=== PATIENT | male | born 1970 | race Caucasian/White ===

== ENCOUNTER 2016-10-11 14:35 | Emergency (ER) | payer OTHER, BC ==
[2016-10-11 14:48] VITALS: BP 159/101
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
[2016-10-11] MEDS ORDERED: Diphtheria,Pertussis(Acell),Tetanus Vaccine 0.5 ML Syringe IM ONE ×2 (15:00→15:02)
[2016-10-11] MEDS ORDERED: Sodium Chloride 0.9% 1,000 ML IV ONE (15:35)
[2016-10-11] MEDS ORDERED: ceFAZolin 1 GM Vial IM ONE (15:54)
[2016-10-11] MEDS ORDERED: Lidocaine 1% 20 ML MDV INJECT ONE (15:56)
[2016-10-11] MEDS ORDERED: Bupivacaine 0.5% 10 ML SDV INJECT ONE (15:56)
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
[2016-10-11] MEDS ORDERED: Bacitracin Oint 28.35 GM Tube TOP ONE (16:40)
[2016-10-11] MEDS ORDERED: Water For Injection, Sterile 20 ML SDV INJECT STA (16:41)
[2016-10-11] MEDS ORDERED: Bacitracin Oint 1 GM U/D Packet TOP ONE (16:42)
== END 2016-10-11 17:10 | disposition home or self-care (01) ==
LOC: MW.ED 14:35
DX: S62.661B Nondisplaced fracture of distal phalanx of left index finger, initial encounter for open fracture (principal); F17.200 Nicotine dependence, unspecified, uncomplicated; Z79.899 Other long term (current) drug therapy; W27.8XXA Contact with other nonpowered hand tool, initial encounter; Y92.69 Other specified industrial and construction area as the place of occurrence of the external cause; Y99.0 Civilian activity done for income or pay; Z23 Encounter for immunization
CPT/HCPCS: 12001; 73140; 90471; 96372; 99283; J0690; 90715

== ENCOUNTER 2016-12-20 05:55 | Observation (INO) | payer BC, OTHER ==
[2016-12-20] MEDS ORDERED: Sodium Chloride 0.9% 10 ML Syringe FLUSH PRN (06:08)
[2016-12-20] MEDS ORDERED: Sodium Chloride 0.9% 2.5 ML Syringe FLUSH PRN (06:08)
[2016-12-20] MEDS ORDERED: Aspirin 81 MG Tab.Chew PO ONE (06:08)
[2016-12-20] MEDS ORDERED: Sodium Chloride 0.9% 1,000 ML IV ONE (06:08)
--- NOTE | 2016-12-20 06:13 | EDM.PDOC ---
ED HPI GENERAL MEDICAL PROBLEM - General Chief Complaint: Chest Pain Stated Complaint: CHEST PAIN Time Seen by Provider: 12/20/16 06:01 - History of Present Illness INITIAL COMMENTS - FREE TEXT/NARRATIVE: HISTORY AND PHYSICAL: History of present illness: The patient is a 46-year-old male with no stated medical problems who presents with complaints of pain to the left side of his chest describes a sharp and intermittent in intensity but constant since it started at 11:00 last evening. Patient states he has had similar episodes of this pain in the past at least several times over last 1 year but has not sought any medical care. The patient denied any shortness of breath throughout the night but feels somewhat short of breath now and no nausea abdominal pain vomiting or diarrhea. 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 He has no leg pain or swelling and no cardiac or pulmonary history. He has a history of tobacco use but denies drug use and does have a father who has had heart problems and heart attacks with his first problem in his 40s. Patient does not know his cholesterol lipid panel is never demonstrated test. Patient states when he had these episodes in the past he has been "stubborn" and has not seen a doctor for them. Patient denies any taking medication for this discomfort persisted and currently in the ED he rates his pain as a 5/10. He drinks socially and did have beer last evening approximately 6 beers. Patient states he tries to eat healthy and when he is on the oil doing strenuous activity recently he did not have any chest pain with it. Patient says he was asleep and woke up when the discomfort started. The patient indicates just left of the sternum mid chest anteriorly as the site of the discomfort Review of systems: As per history of present illness and below otherwise all systems reviewed and negative. Past medical history: As per history of present illness and as reviewed below otherwise noncontributory. Surgical history: As per history of present illness and as reviewed below otherwise noncontributory. Social history: No reported history of drug or alcohol abuse. Family history: As per history of present illness and as reviewed below otherwise noncontributory. Physical exam: Gen.: Well-developed well-nourished male who is mildly overweight and speaks slowly and easily in the ED without any distress. Vital signs been noted by me. The patient is a very strong smell of mouthwash as chewing, my evaluation HEENT: Atraumatic, normocephalic, negative for conjunctival pallor or scleral icterus, mucous membranes moist, throat clear, neck supple, nontender, trachea midline. No cervical adenopathy Lungs: Clear to auscultation, breath sounds equal bilaterally, chest nontender. Heart: S1S2, regular, negative for clicks, rubs, or JVD. Abdomen: Soft, nondistended, nontender. Negative for masses or hepatosplenomegaly. Negative for costovertebral tenderness. Pelvis: Stable nontender. Genitourinary: Deferred. Rectal: Deferred. Extremities: Atraumatic, negative for cords or calf pain. Neurovascular unremarkable. No pedal edema or leg asymmetry Neuro: Awake, alert, oriented. Cranial nerves II through XII unremarkable. Cerebellum unremarkable. Motor and sensory unremarkable throughout. Exam nonfocal. Diagnostics: EKG CBC CMP lipase INR troponin and chest x-ray alcohol level Therapeutics: IV O2 monitor aspirin sublingual nitroglycerin With the first 2 nitroglycerin the patient states the pain went from being sharp or pressure-like but still was a 5/10 and after the third nitroglycerin his chest pain is a 3/10. We will proceed to give some morphine as well as Nitropaste and reevaluate Personal evaluation the patient states the pain is almost gone is very dull in nature and very much improved from when he came in. I discussed all testing results with him and his and advised observation admission and he is agreeable to do so. At 13 and discussed the case with Dr. Huddleston who also except the patient for observation admission Impression: Chest pain rule out ACS Definitive disposition and diagnosis as appropriate pending reevaluation and review of above. chest Pain Score (Numeric/FACES): 5 - Related Data Allergies Allergy/AdvReac Type Severity Reaction Status Date / Time No Known Allergies Allergy Verified 12/20/16 06:05 Home Meds: Home Meds Omeprazole Magnesium [Prilosec Otc] 20 mg PO DAILY 11/20/14 [History] Past Medical History - Past Health History Medical/Surgical History: Denies Medical/Surgical History Gastrointestinal History: Reports: GERD - Infectious Disease History Infectious Disease History: Reports: Chicken Pox - Past Surgical History Other Musculoskeletal Surgeries/Procedures:: left leg Social & Family History - Family History Family Medical History: Noncontributory - Tobacco Use Smoking Status *Q: Current Every Day Smoker Years of Tobacco use: 20 Packs/Tins Daily: 1 - Alcohol Use Days Per Week of Alcohol Use: 0 Number of Drinks Per Day: 6 Total Drinks Per Week: 0 - Recreational Drug Use Recreational Drug Use: No ED ROS GENERAL - Review of Systems Review Of Systems: ROS reveals no pertinent complaints other than HPI. ED EXAM, GENERAL - Physical Exam Exam: See Below (See dictation) Course - Vital Signs Last Recorded V/S: Last Vital Signs Temp 36.6 C 12/20/16 06:09 Pulse 69 12/20/16 06:09 Resp 18 12/20/16 06:09 BP 128/78 12/20/16 06:29 Pulse Ox 94 L 12/20/16 06:09 - Orders/Labs/Meds Orders: Active Orders 24 hr Category Date Time Status Patient Status [ADT] Stat ADT 12/20/16 07:10 Ordered Cardiac Monitoring [RC] . DIRECTED Care 12/20/16 06:07 Active EKG Documentation Completion [RC] STAT Care 12/20/16 06:07 Active Oxygen Therapy, ED [RC] ASDIRECTED Care 12/20/16 06:07 Active Pulse Oximetry [RC] ASDIRECTED Care 12/20/16 06:07 Active Chest 1V Frontal [CR] Stat Exams 12/20/16 06:07 Taken Sodium Chloride 0.9% [Saline Flush] Med 12/20/16 06:08 Active 10 ml FLUSH ASDIRECTED PRN Sodium Chloride 0.9% [Saline Flush] Med 12/20/16 06:08 Active 2.5 ml FLUSH ASDIRECTED PRN Saline Lock Insert [OM.PC] Stat Oth 12/20/16 06:07 Ordered Medication Orders Sodium Chloride (Saline Flush) 10 ml FLUSH ASDIRECTED PRN PRN Reason: Keep Vein Open Last Admin: 12/20/16 06:25 Dose: 10 ml Sodium Chloride (Saline Flush) 2.5 ml FLUSH ASDIRECTED PRN PRN Reason: Keep Vein Open Last Admin: 12/20/16 06:24 Dose: 2.5 ml Labs: Laboratory Tests 12/20/16 12/20/16 12/20/16 Range/Units 06:06 06:06 06:06 WBC 5.65 (4.0-11.0) K/uL RBC 4.84 (4.50-5.90) M/uL Hgb 15.1 (13.0-17.0) g/dL Hct 45.4 (38.0-50.0) % MCV 93.8 (80.0-98.0) fL MCH 31.2 (27.0-32.0) pg MCHC 33.3 (31.0-37.0) g/dL RDW Std Deviation 47.9 (28.0-62.0) fl RDW Coeff of Kayla 14 (11.0-15.0) % Plt Count 193 (150-400) K/uL MPV 11.00 (7.40-12.00) fL Neut % (Auto) 50.6 (48.0-80.0) % Lymph % (Auto) 25.8 (16.0-40.0) % [place] % (Auto) 8.5 (0.0-15.0) % Eos % (Auto) 14.7 H (0.0-7.0) % Baso % (Auto) 0.4 (0.0-1.5) % Neut # (Auto) 2.9 (1.4-5.7) K/uL Lymph # (Auto) 1.5 (0.6-2.4) K/uL [place] # (Auto) 0.5 (0.0-0.8) K/uL Eos # (Auto) 0.8 H (0.0-0.7) K/uL Baso # (Auto) 0.0 (0.0-0.1) K/uL Nucleated RBC % 0.0 /100WBC Nucleated RBCs # 0 K/uL INR 0.92 (0.86-1.11) Sodium 141 (136-146) mmol/L Potassium 3.8 (3.5-5.1) mmol/L Chloride 111 H (98-110) mmol/L Carbon Dioxide 19 L (21-31) mmol/L BUN 12 (6.0-23.0) mg/dL Creatinine 0.9 (0.6-1.5) mg/dL Est Cr Clr Drug Dosing 130.63 mL/min Estimated GFR (MDRD) > 60.0 ml/min Glucose 96 (60-110) mg/dL Calcium 8.5 L (8.8-10.8) mg/dL Total Bilirubin 0.3 (0.1-1.5) mg/dL AST 23 (5-40) IU/L ALT 30 (8-54) IU/L Alkaline Phosphatase 79 (40-150) Troponin I (0.0-0.29) NG/ML Total Protein 7.5 (6.0-8.0) g/dL Albumin 4.4 (3.5-5.0) g/dL Globulin 3.1 (2.0-3.5) g/dL Albumin/Globulin Ratio 1.4 (1.3-2.8) Lipase 43 (7-80) U/L Ethyl Alcohol 43.5 mg/dL 12/20/16 Range/Units 06:06 WBC (4.0-11.0) K/uL RBC (4.50-5.90) M/uL Hgb (13.0-17.0) g/dL Hct (38.0-50.0) % MCV (80.0-98.0) fL MCH (27.0-32.0) pg MCHC (31.0-37.0) g/dL RDW Std Deviation (28.0-62.0) fl RDW Coeff of Kayla (11.0-15.0) % Plt Count (150-400) K/uL MPV (7.40-12.00) fL Neut % (Auto) (48.0-80.0) % Lymph % (Auto) (16.0-40.0) % [place] % (Auto) (0.0-15.0) % Eos % (Auto) (0.0-7.0) % Baso % (Auto) (0.0-1.5) % Neut # (Auto) (1.4-5.7) K/uL Lymph # (Auto) (0.6-2.4) K/uL [place] # (Auto) (0.0-0.8) K/uL Eos # (Auto) (0.0-0.7) K/uL Baso # (Auto) (0.0-0.1) K/uL Nucleated RBC % /100WBC Nucleated RBCs # K/uL INR (0.86-1.11) Sodium (136-146) mmol/L Potassium (3.5-5.1) mmol/L Chloride (98-110) mmol/L Carbon Dioxide (21-31) mmol/L BUN (6.0-23.0) mg/dL Creatinine (0.6-1.5) mg/dL Est Cr Clr Drug Dosing mL/min Estimated GFR (MDRD) ml/min Glucose (60-110) mg/dL Calcium (8.8-10.8) mg/dL Total Bilirubin (0.1-1.5) mg/dL AST (5-40) IU/L ALT (8-54) IU/L Alkaline Phosphatase (40-150) Troponin I < 0.10 (0.0-0.29) NG/ML Total Protein (6.0-8.0) g/dL Albumin (3.5-5.0) g/dL Globulin (2.0-3.5) g/dL Albumin/Globulin Ratio (1.3-2.8) Lipase (7-80) U/L Ethyl Alcohol mg/dL Meds: Medications Generic Name Dose Route Start Last Admin Trade Name Freq PRN Reason Stop Dose Admin Sodium Chloride 10 ml 12/20/16 06:08 12/20/16 06:25 Saline Flush FLUSH 10 ml ASDIRECTED PRN Administration Keep Vein Open Sodium Chloride 2.5 ml 12/20/16 06:08 12/20/16 06:24 Saline Flush FLUSH 2.5 ml ASDIRECTED PRN Administration Keep Vein Open Discontinued Medications Generic Name Dose Route Start Last Admin Trade Name Freq PRN Reason Stop Dose Admin Aspirin 324 mg 12/20/16 06:08 12/20/16 06:20 Aspirin PO 12/20/16 06:09 324 mg ONETIME ONE Administration Sodium Chloride 1,000 mls @ 999 mls/hr 12/20/16 06:08 12/20/16 06:12 Normal Saline IV 12/20/16 07:08 999 mls/hr STAT ONE Administration Ketorolac Tromethamine 30 mg 12/20/16 07:04 Toradol IVPUSH 12/20/16 07:05 ONETIME ONE Morphine Sulfate 2 mg 12/20/16 06:33 12/20/16 06:38 Morphine IVPUSH 12/20/16 06:34 2 mg ONETIME ONE Administration Nitroglycerin 0.4 mg 12/20/16 06:15 12/20/16 06:29 Nitrostat SL 12/20/16 06:26 0.4 mg Q5M BHARATHI Administration Nitroglycerin 0.5 gm 12/20/16 06:33 12/20/16 06:38 Nitro-Bid 2% TOP 12/20/16 06:34 0.5 gm ONETIME ONE Administration Pantoprazole Sodium 40 mg 12/20/16 07:04 Protonix Iv IVPUSH 12/20/16 07:05 .BOLUS ONE Departure - Departure Time of Disposition: 07:15 Disposition: Refer to Observation Condition: Good Clinical Impression: Chest pain Qualifiers: Chest pain type: unspecified Qualified Code(s): R07.9 - Chest pain, unspecified - Discharge Information Forms: ED Department Discharge - My Orders Last 24 Hours: My Active Orders 12/20/16 06:07 Cardiac Monitoring [RC] . DIRECTED EKG Documentation Completion [RC] STAT Oxygen Therapy, ED [RC] ASDIRECTED Pulse Oximetry [RC] ASDIRECTED Chest 1V Frontal [CR] Stat Saline Lock Insert [OM.PC] Stat 12/20/16 06:08 Sodium Chloride 0.9% [Saline Flush] 10 ml FLUSH ASDIRECTED PRN Sodium Chloride 0.9% [Saline Flush] 2.5 ml FLUSH ASDIRECTED PRN 12/20/16 07:10 Patient Status [ADT] Stat - Assessment/Plan Last 24 Hours: My Active Orders 12/20/16 06:07 Cardiac Monitoring [RC] . DIRECTED EKG Documentation Completion [RC] STAT Oxygen Therapy, ED [RC] ASDIRECTED Pulse Oximetry [RC] ASDIRECTED Chest 1V Frontal [CR] Stat Saline Lock Insert [OM.PC] Stat 12/20/16 06:08 Sodium Chloride 0.9% [Saline Flush] 10 ml FLUSH ASDIRECTED PRN Sodium Chloride 0.9% [Saline Flush] 2.5 ml FLUSH ASDIRECTED PRN 12/20/16 07:10 Patient Status [ADT] Stat
[2016-12-20] MEDS: Nitroglycerin 0.4 MG Tab.SL SL SCH ×3 (06:18→06:29)
[2016-12-20] MEDS ORDERED: Nitroglycerin 2% Oint 1 GM UD Packet TOP ONE (06:33)
[2016-12-20] MEDS ORDERED: Morphine 2 MG/ML Syringe IVPUSH ONE (06:33)
[2016-12-20 06:37] LABS: CHLORIDE,CL 111 mmol/L (98-110); SODIUM,NA 141 mmol/L (136-146)
[2016-12-20] MEDS ORDERED: Ketorolac 30 MG/ML SDV IVPUSH ONE (07:04)
[2016-12-20] MEDS ORDERED: Pantoprazole 40 MG Vial IVPUSH ONE (07:04)
[2016-12-20] MEDS ORDERED: Omeprazole 20 MG Cap.CR PO SCH (07:30)
[2016-12-20] MEDS ORDERED: Acetaminophen 325 MG Tab PO PRN (08:06)
[2016-12-20] MEDS ORDERED: Ondansetron 4 MG/2 ML SDV IVPUSH PRN (08:06)
--- NOTE | 2016-12-20 09:32 | PCM.HP ---
H&P History of Present Illness - General Date of Service: 12/20/16 Admit Problem/Dx: Admission Diagnosis/Problem Admission Diagnosis/Problem Chest pain Source of Information: Patient History Limitations: Reports: No Limitations - History of Present Illness Initial Comments - Free Text/Narative: This 46 year old male with pmh of GERD presented to the ED this morning with approximately 8 hours of chest pain. He reports this midsternal chest pain started last evening around 11:00pm. He describes it has a sharp stabbing sensation. He reported it wsa hard to take a deep breath and move his L arm. He denies it worsening with activity and does not recall anything making it better. He denied diaphoresis with pain, no SOB, palpitations or radiation of the pain. His reports noticing discoloration to his ears and nose, and that the pain was so intense he was tearing up. He tried sleeping through it but them woke up with the same pain and could not stand it any longer so he came to the ED for evaluation at the encouragement of his . He denies recent illness, no fevers, URI, cough or SOB. He did eat siracha potato salad last evening, which was spicy. He denies any trauma to his chest or body recently. 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 He reports he smokes about 1 ppd, social alochol use and no recreational drug use. He reports his father had several MIs with a CABG x 3 vessel, he was a heavy smoker and alcohol user. In the ED Labwork WNL. Troponin negative, EKG SR 60s, with no ST segment changes. CXR negative. He was given 2 SL nitros, with near resolution of chest pain, then give Morphine which completely took chest pain away. Nitro paste was placed. He will be admitted for observation, chest pain R/O ACS. chest Pain Score (Numeric/FACES): 5 - Related Data Allergies/Adverse Reactions: Allergies Allergy/AdvReac Type Severity Reaction Status Date / Time No Known Allergies Allergy Verified 12/20/16 06:05 Home Medications: Home Meds Omeprazole Magnesium [Prilosec Otc] 20 mg PO DAILY 11/20/14 [History] Past Medical History - Past Health History Medical/Surgical History: Denies Medical/Surgical History Cardiovascular History: Reports: Hypertension (not treated.). Denies: Afib, Blood Clots/VTE/DVT, Heart Failure, High Cholesterol Respiratory History: Reports: None, Asthma. Denies: COPD, PE Gastrointestinal History: Reports: GERD. Denies: Chronic Diarrhea, Inflammatory Bowel Disease, Irritable Bowel Syndrome Genitourinary History: Reports: None. Denies: Chronic Renal Insuffiency Musculoskeletal History: Reports: Fracture (left finger fx. October 2016, also had neck fracture couple years ago, followed up in [place]. Having more issues with bilateral numbness and tingling to arms.) Neurological History: Denies: CVA, TIA Endocrine/Metabolic History: Reports: None. Denies: Diabetes, Type II, Hypothyroidism Hematologic History: Reports: Blood Transfusion(s) - Infectious Disease History Infectious Disease History: Reports: Chicken Pox - Past Surgical History Other Musculoskeletal Surgeries/Procedures:: left leg Social & Family History - Family History Family Medical History: Noncontributory Cardiac: Reports: [place] (Father) Other Cardiac Family History: father - Tobacco Use Smoking Status *Q: Current Every Day Smoker Years of Tobacco use: 25 Packs/Tins Daily: 1 Second Hand Smoke Exposure: No - Caffeine Use Caffeine Use: Reports: Energy Drinks - Alcohol Use Days Per Week of Alcohol Use: 1 Number of Drinks Per Day: 6 Total Drinks Per Week: 6 Alcohol Use Frequency: Socially - Recreational Drug Use Recreational Drug Use: No - Living Situation & Occupation Living situation: Reports: H&P Review of Systems - Review of Systems: Review Of Systems: See Below General: Denies: Fever, Chills, Malaise HEENT: Reports: No Symptoms. Denies: Headaches, Sinus Congestion, Visual Changes Pulmonary: Reports: No Symptoms. Denies: Shortness of Breath, Wheezing, Cough, Sputum Cardiovascular: Reports: Chest Pain. Denies: Palpitations, Dyspnea on Exertion , Edema Gastrointestinal: Reports: No Symptoms. Denies: Abdominal Pain, Black Stool, Bloody Stool, Nausea, Vomiting Genitourinary: Reports: No Symptoms. Denies: Dysuria, Frequency, Burning Musculoskeletal: Denies: Neck Pain, Back Pain Neurological: Reports: Numbness (to bilateral arms with positioning since neck fracture), Tingling Hematologic/Lymphatic: Reports: No Symptoms Immunologic: Reports: No Symptoms Exam - Exam Exam: See Below - Vital Signs Vital Signs: Last Vital Signs Temp 97.3 F 12/20/16 08:15 Pulse 58 L 12/20/16 08:15 Resp 18 12/20/16 08:15 BP 122/77 12/20/16 08:15 Pulse Ox 94 L 12/20/16 08:15 Weight: 114.351 kg - Exam Quality Assessment: DVT Prophylaxis General: Alert, Oriented, Cooperative HEENT: Conjunctiva Clear, Mucosa Moist & [place], Nares Patent, Posterior Pharynx Clear, Pupils Reactive Neck: Supple, Trachea Midline Lungs: Clear to Auscultation, Normal Respiratory Effort Cardiovascular: Regular Rate, Regular Rhythm, Normal S1, Normal S2, Other ( anterior L chest tender to palpation, does not radiate to shoulder or flank.). No: Irregular Rhythm, Bradycardia, Tachycardia, Systolic Murmur, Diastolic Murmur Abdomen: Normal Bowel Sounds, Soft. No: Tenderness Back Exam: Normal Inspection, Full Range of Motion, NT Extremities: Normal Inspection, Normal Pulses Neurological: Cranial Nerves Intact Neuro Extensive - Mental Status: Alert, Oriented x3, Normal Mood/Affect Neuro Extensive - Motor, Sensory, Reflexes: CN II-XII Intact, Normal Gait, Normal Reflexes Psychiatric: Alert, Normal Affect, Normal Mood - Patient Data Result Diagrams: 12/20/16 06:06 12/20/16 06:06 EKG INTERPRETATION EKG Date: 12/20/16 Time: 05:58 Rhythm: NSR Rate (Beats/Min): 67 P-Wave: Present QRS: Normal ST-T: Normal QT: Normal *Q Meaningful Use (ADM) - VTE *Q VTE Criteria *Q: - VTE Risk Assess *Q Each Risk Factor Represents 1 Point: Age 41 - 59 years Total Score 1 Point Risk Factors: 1 Each Risk Factor Represents 2 Points: None Total Score 2 Point Risk Factors: 0 Each Risk Factor Represents 3 Points: None Total Score 3 Point Risk Factors: 0 Each Risk Factor Represents 5 Points: None Total Score 5 Point Risk Factors: 0 Venous Thromboembolism Risk Factor Score *Q: 1 - Stroke *Q Stroke Criteria *Q: - AMI *Q AMI Criteria *Q: - Problem List (1) Chest pain SNOMED Code(s): 76897157 ICD Code: R07.9 - CHEST PAIN, UNSPECIFIED Status: Acute Qualifiers: Chest pain type: unspecified Qualified Code(s): R07.9 - Chest pain, unspecified (2) GERD (gastroesophageal reflux disease) SNOMED Code(s): 513400717 ICD Code: K21.9 - GASTRO-ESOPHAGEAL REFLUX DISEASE WITHOUT ESOPHAGITIS Status: Acute Qualifiers: Esophagitis presence: without esophagitis Qualified Code(s): K21.9 - Gastro -esophageal reflux disease without esophagitis Problem List Initiated/Reviewed/Updated: Yes Orders Last 24hrs: Active Orders 24 hr Category Date Time Status Antiembolic Devices [RC] PER UNIT ROUTINE Care 12/20/16 08:07 Active Intake and Output [RC] Q12H Care 12/20/16 08:07 Active Oxygen Therapy [RC] PRN Care 12/20/16 08:06 Active Telemetry Monitoring [Cardiac Monitoring] [RC] . Care 12/20/16 08:09 Active DIRECTED Up ad Sharon [RC] ASDIRECTED Care 12/20/16 08:06 Active VTE/DVT Education [RC] PER UNIT ROUTINE Care 12/20/16 08:06 Active Vital Signs [RC] Q4H Care 12/20/16 08:06 Active Heart Healthy Diet [DIET] Diet 12/20/16 Breakfast Active TROPONIN I [CHEM] Q6H Lab 12/22/16 12:00 Ordered TROPONIN I [CHEM] Q6H Lab 12/22/16 18:00 Ordered Acetaminophen [Tylenol] Med 12/20/16 08:06 Active 650 mg PO Q4H PRN Omeprazole Med 12/20/16 07:30 Active 20 mg PO ACBREAKFAST Ondansetron [Zofran] Med 12/20/16 08:06 Active 4 mg IVPUSH Q4H PRN Sequential Compression Device [OM.PC] Per Unit Routine Oth 12/20/16 08:07 Ordered Resuscitation Status Routine Resus Stat 12/20/16 08:06 Ordered Medication Orders Acetaminophen (Tylenol) 650 mg PO Q4H PRN PRN Reason: Pain (mild 1-3) Omeprazole (Omeprazole) 20 mg PO ACBREAKFAST BHARATHI Last Admin: 12/20/16 08:56 Dose: Ondansetron HCl (Zofran) 4 mg IVPUSH Q4H PRN PRN Reason: Nausea Sodium Chloride (Saline Flush) 10 ml FLUSH ASDIRECTED PRN PRN Reason: Keep Vein Open Last Admin: 12/20/16 06:25 Dose: 10 ml Sodium Chloride (Saline Flush) 2.5 ml FLUSH ASDIRECTED PRN PRN Reason: Keep Vein Open Last Admin: 12/20/16 06:24 Dose: 2.5 ml Assessment/Plan Comment:: This 46 year old male admitted with chest pain R/O ACS 1. Chest pain: Trend troponins, telemetry. Cholesterol panel obtained, Triglycerides 168, LDL 98, HDL 44. A1c 5.5. Removed nitro paste. Spent 15 minutes discussing smoking cessation and diet recommendations to reduce cardiac risk, and him in agreement with changes need, especially smoking cessation. No nicotine patch while ruling out ACS. Chest tender to palpation, may be costochondritis, muscle strain? Due to family history, will arrange for outpatient stress test. VTE prophylaxis: SCDs Dispo: 1 day DISCHARGE PLAN: All troponins returned negative and no chest pain returned and no ST segment changes noted on telemetry, ACS ruled out. Would recommend outpatient stress test due to family history of early PA and stenting. Encouraged to have no strenuous activity until after stress test, educated on importance of smoking cessation. Continue Omeprazole and avoid spicy foods at supper time. Follow up with PCP in 1 week and complete stress test when contact by stress test nurse. Encouraged to return to clinic or ED if concerns should arise.
--- NOTE | 2016-12-20 14:04 | CR ---
EXAM DATE: 12/20/16 PATIENT'S AGE: 46 Patient: JACKLYN MACK Facility: [place], [place] Site Site : 1970 Study: XRay Chest [id number]/19/2017 6:42:57 AM Ordering Physician: RICK Final Report: INDICATION: SOB/PAIN Single AP view Findings: The lungs are clear. Pulmonary vascularity, mediastinum and cardiac silhouette are within normal limits. No effusions and no pneumothorax. Osseous structures appear unremarkable. Impression: No evidence of acute cardiopulmonary disease. Dictated by: Fermín Lackey MD @ 12/20/2016 07:04:52 (Electronic Signature) Report Signed by Proxy. ZULAY
[2016-12-20 18:06] VITALS: BP 116/69
== END 2016-12-20 18:45 | disposition home or self-care (01) ==
LOC: MW.ED 05:55 → MW.MS 07:10
PROVIDERS: ADMIT Internal Medicine; ATTEND Internal Medicine
DX: R07.2 Precordial pain (principal); I10 Essential (primary) hypertension; K21.9 Gastro-esophageal reflux disease without esophagitis; F17.210 Nicotine dependence, cigarettes, uncomplicated; Z98.890 Other specified postprocedural states; Z79.899 Other long term (current) drug therapy
CPT/HCPCS: 36415; 71010; 80053; 80061; 83036; 83690; 84484; 85025; 85610; 93005; 96361; 96374; 99285; A9270; G0378; G0480; J2270; J7040

== ENCOUNTER 2020-12-24 20:15 | Emergency (ER) | payer BC ==
[2020-12-24] MEDS ORDERED: Lidocaine 2% Viscous Solution 15 ML Cup PO ONE (20:22)
[2020-12-24] MEDS ORDERED: Benzocaine 20% Topical Spray UD MUCMEM ONE (20:22)
--- NOTE | 2020-12-24 20:26 | EDM.PDOC ---
ED HPI GENERAL MEDICAL PROBLEM - General Chief Complaint: ENT Problem Stated Complaint: TOOTHACHE Time Seen by Provider: 12/24/20 20:16 Source of Information: Reports: Patient History Limitations: Reports: No Limitations - History of Present Illness INITIAL COMMENTS - FREE TEXT/NARRATIVE: HISTORY AND PHYSICAL: History of present illness: Patient is a 50-year-old male who presents to the emergency room with complaints of left lower dental pain. He states he has "bad teeth" and the back posterior molars have severe decay. He reports he is too busy with work in the [employer] field to see a dentist and decided to come to the emergency room today for evaluation. Patient denies any fever, chills, headache, change in vision, syncope or near syncope. Denies any chest pain, back pain, shortness of breath or cough. Denies any abdominal pain, nausea, vomiting, diarrhea, constipation or dysuria. Has not noted any blood in urine or stool. Patient has been eating and drinking approp riately. Review of systems: As per history of present illness and below otherwise all systems reviewed and negative. Past medical history: As per history of present illness and as reviewed below otherwise noncontributory. Surgical history: As per history of present illness and as reviewed below otherwise noncontributory. Social history: See social history for further information Family history: As per history of present illness and as reviewed below otherwise noncontributory. Physical exam: General: Well developed and well nourished 50-year-old male. Alert and orientated x 3. Nontoxic in appearance and in no acute distress. Vital signs are stable and have been reviewed by me. Nursing notes were reviewed. HEENT: Atraumatic, normocephalic, pupils equal and reactive bilaterally, n egative for conjunctival pallor or scleral icterus, mucous membranes moist, multiple dental caries with severe decay of the left posterior molars with mild erythema along the gumline. TMs normal bilaterally, throat clear, neck supple, nontender, trachea midline. No drooling or trismus noted. No meningeal signs. No hot potato voice noted. Lungs: Clear to auscultation bilaterally. No wheezes, rales, or rhonchi. Chest nontender. Normal work of breathing, no accessory muscles used. Heart: S1S2, regular rate and rhythm without overt murmur, gallops, or rubs. No JVD. No peripheral edema Abdomen: Soft, nondistended, nontender. Normoactive bowel sounds. Negative for masses or costovertebral tenderness. Pelvis: Stable nontender. Genitourinary/Rectal: Deferred. Skin: Intact, warm, dry. No lesions or rashes noted. Hematologic: No petechiae or purpra. Mucosa appropriate color and normal nail bed color and refill. Extremities: Atraumatic, moves all extremities per self without difficulty or deficits, negative for cords or calf pain. Neurovascular unremarkable. Neuro: Awake, alert, oriented. Cranial nerves II through XII unremarkable. Cerebellum unremarkable. Motor and sensory unremarkable throughout. Exam nonfocal. Psychiatric: Mood and affect are appropriate. Normal thought process. Answering questions appropriately. Notes: *This patient was seen and evaluated during the 2019 SARS-CoV-2 novel coronavirus pandemic period. Community viral transmission is ongoing at time of this encounter and the emergency department is operating under pandemic response procedures. Patient has multiple dental caries with poor dentition. I do feel he be served best by following up with a dentist. He does have some mild erythema which could be early sign of abscess. Will place on antibiotics. He is requesting pain medication as he is unable to sleep well. I will give him a limited amount of Carpenter for nighttime use. Diclofenac can be used during the day while at work. I have talked with the patient about today's findings, in addition to providing specific details for plan of care. Reassessment at the time of disposition demonstrates that the patient is in no acute distress. The patient is stable for discharge, counseling was provided and we discussed in great detail signs and symptoms that would prompt them to return to the Emergency Department. Medication, follow up and supportive care measures were reviewed and discussed. Voices understanding and is agreeable to plan of care. Denies any further questions or concerns at this time. Diagnostics: None Therapeutics: Dental balls Prescription: Augmentin, Carpenter, diclofenac Impression: Dental decay, rule out early abscess Plan: 1. Please take the antibiotic as prescribed. 2. Tylenol and/or ibuprofen as needed for pain management. "Tooth Balls" have been given to you; apply along the gumline every 2-3 hours as needed. Do not swallow these; external use only. 3. Follow-up with a dentist for definitive care. Return to the ED as needed and as discussed. Definitive disposition and diagnosis as appropriate pending reevaluation and review of above. Left Lower Tooth/Teeth Pain Score (Numeric/FACES): 10 - Related Data Allergies Allergy/AdvReac Type Severity Reaction Status Date / Time No Known Allergies Allergy Verified 12/24/20 20:23 Home Meds: Home Meds Omeprazole Magnesium [Prilosec Otc] 20 mg PO DAILY 11/20/14 [History] Amoxicillin/Clavulanate K [Augmentin 875-125 MG] 1 tab PO BID 10 Days #20 tablet 12/24/20 [Rx] Diclofenac Sodium [Voltaren] 75 mg PO BIDMEALS PRN #30 tab.cr 12/24/20 [Rx] Hydrocodone/Acetaminophen [Hydrocodone-Acetamin 5-325 mg] 1 - 2 tab PO BEDTIME #15 tablet 12/24/20 [Rx] Past Medical History - Past Health History Medical/Surgical History: Denies Medical/Surgical History Cardiovascular History: Reports: Hypertension (not treated.). Denies: Afib, Blood Clots/VTE/DVT, Heart Failure, High Cholesterol Respiratory History: Reports: None, Asthma. Denies: COPD, PE Gastrointestinal History: Reports: GERD. Denies: Chronic Diarrhea, Inflammatory Bowel Disease, Irritable Bowel Syndrome Genitourinary History: Reports: None. Denies: Chronic Renal Insuffiency Musculoskeletal History: Reports: Fracture (left finger fx. October 2016, also had neck fracture couple years ago, followed up in [place]. Having more issues with bilateral numbness and tingling to arms.) Other Musculoskeletal History: left finger fx. October 2016 Endocrine/Metabolic History: Reports: None. Denies: Diabetes, Type II, Hypothyroidism Hematologic History: Reports: Blood Transfusion(s) - Infectious Disease History Infectious Disease History: Reports: Chicken Pox - Past Surgical History Other Musculoskeletal Surgeries/Procedures:: left leg Social & Family History - Family History Family Medical History: No Pertinent Family History Cardiac: Reports: [place] (Father) Other Cardiac Family History: father - Caffeine Use Caffeine Use: Reports: Energy Drinks - Living Situation & Occupation Living situation: Reports: ED ROS ENT - Review of Systems Review Of Systems: Comprehensive ROS is negative, except as noted in HPI. ED EXAM, ENT - Physical Exam Exam: See Below (See dictation) Course - Vital Signs Last Recorded V/S: Last Vital Signs Temp 97.3 F 12/24/20 20:23 Pulse 58 L 12/24/20 20:23 Resp 17 12/24/20 20:23 BP 137/89 12/24/20 20:23 Pulse Ox 97 12/24/20 20:23 - Orders/Labs/Meds Meds: Medications Discontinued Medications Generic Name Dose Route Start Last Admin Trade Name Freq PRN Reason Stop Dose Admin Benzocaine 2 each 12/24/20 20:22 12/24/20 20:31 Benzocaine 20% Topical [place] Ud MUCMEM 12/24/20 20:23 2 each ONETIME ONE Administration Lidocaine HCl 15 ml 12/24/20 20:22 12/24/20 20:31 Lidocaine 2% Viscous Solution 15 Ml Cup PO 12/24/20 20:23 15 ml ONETIME ONE Administration Departure - Departure Time of Disposition: 20:38 Disposition: Home, Self-Care 01 Clinical Impression: Dental decay - Discharge Information Prescriptions: Amoxicillin/Clavulanate K [Augmentin 875-125 MG] 1 tab PO BID 10 Days #20 tablet Hydrocodone/Acetaminophen [Hydrocodone-Acetamin 5-325 mg] 1 - 2 tab PO BEDTIME #15 tablet Diclofenac Sodium [Voltaren] 75 mg PO BIDMEALS PRN #30 tab.cr PRN Reason: Pain Instructions: Dental Abscess Referrals: PCP,None [Primary Care Provider] - Forms: ED Department Discharge Additional Instructions: The following information is given to patients seen in the emergency department who are being discharged to home. This information is to outline your options for follow-up care. We provide all patients seen in our emergency department with a follow-up referral. The need for follow-up, as well as the timing and circumstances, are variable depending upon the specifics of your emergency department visit. If you don't have a primary care physician on staff, we will provide you with a referral. We always advise you to contact your personal physician following an emergency department visit to inform them of the circumstance of the visit and for follow-up with them and/or the need for any referrals to a consulting specialist. The emergency department will also refer you to a specialist when appropriate. This referral assures that you have the opportunity for follow-up care with a specialist. All of these measure are taken in an effort to provide you with optimal care, which includes your follow-up. Under all circumstances we always encourage you to contact your private physician who remains a resource for coordinating your care. When calling for follow-up care, please make the office aware that this follow-up is from your recent emergency room visit. If for any reason you are refused follow-up, please contact the [facility] Emergency Department at and asked to speak to the emergency department charge nurse. [facility] [address] [place] [address] [facility] [address] [place] [address] Thank you for choosing the [facility] emergency department in [place] for your medical needs today. It was a pleasure caring for you. Today you were seen in the emergency department for dental pain. 1. Please take the antibiotic as prescribed. YOU NEED TO SEE A DENTIST. 2. Tylenol and/or ibuprofen as needed for pain management. "Tooth Balls" have been given to you; apply along the gumline every 2-3 hours as needed. Do not swallow these; external use only. Carpenter has been prescribed for moderate to severe pain, use at nighttime or when not working as may cause drowsiness. 3. Follow-up with a dentist for definitive care. Return to the ED as needed and as discussed. Sepsis Event Note (ED) - Focused Exam Vital Signs: Vital Signs Temp Pulse Resp BP Pulse Ox 12/24/20 20:23 97.3 F 58 L 17 137/89 97
[2020-12-24 20:51] VITALS: BP 112/82; PULSE 60
== END 2020-12-24 20:49 | disposition home or self-care (01) ==
LOC: MW.ED 20:15
DX: K02.9 Dental caries, unspecified (principal); K21.9 Gastro-esophageal reflux disease without esophagitis; I10 Essential (primary) hypertension; Z79.899 Other long term (current) drug therapy
CPT/HCPCS: 99282; A9270; 99283

== ENCOUNTER 2024-03-24 08:57 | Emergency (ER) | payer BC ==
[2024-03-24 10:40] VITALS: BP 128/76; PULSE 70
== END 2024-03-24 10:39 | disposition home or self-care (01) ==
LOC: MW.ED 08:57
DX: M25.561 Pain in right knee (principal); I10 Essential (primary) hypertension; K21.9 Gastro-esophageal reflux disease without esophagitis; F17.210 Nicotine dependence, cigarettes, uncomplicated; Z79.899 Other long term (current) drug therapy; Z75.8 Other problems related to medical facilities and other health care; X50.9XXA Other and unspecified overexertion or strenuous movements or postures, initial encounter; Y99.0 Civilian activity done for income or pay
CPT/HCPCS: 73562-26-RT; 73562-RT; 99283